=== PATIENT | male | born 1975 | race Caucasian/White ===

== ENCOUNTER 2024-05-22 07:41 | Day surgery (SDC) | payer OTHER ==
[~2024-05-22] VITALS: Ht 185.4 cm; Wt 90.9 kg
[~2024-05-22 07:41] MED LIST: HYDROCHLOROTH12.5 MG PO; IBLOOD GLUCOSE TEST STRIP 1 EA TEST VI PRN; LACTATED RINGER'S 1,000 ML IV SCH; LIDOCAINE HCL 1% 5 ML SDV INJ ONE; MIDAZOLAM HCL 5 MG/5 ML VIAL IV PRN; fentaNYL citrate 100 MCG/2 ML VIAL IV PRN
[2024-05-22 07:54] VITALS: BP 152/80
[2024-05-22] MEDS ORDERED: ROSUVASTATIN CAL5 MG PO (07:57)
[2024-05-22] MEDS ORDERED: DAILY VITAMIN1 EAC3 PO (07:58)
[2024-05-22] MEDS ORDERED: fentaNYL citrate 100 MCG/2 ML VIAL ONE ×2 (08:36→09:00)
[2024-05-22] MEDS ORDERED: MIDAZOLAM HCL 2 MG/2 ML VIAL ONE ×2 (08:36→09:02)
--- NOTE | 2024-05-22 09:40 | NUR ---
05/22/24 0940 Idalia Coyle [id number]-PT ARRIVES TO PACU RESTING ON LT SIDE, PT A+O XA, DENIES PAIN OR NAUSEA, PT'S ABD DISTENDED PT EDUCATED AND ENCOURAGED TO PASS GAS. VSS ON RA, RR EVEN AND UNLABORED.
[2024-05-22 10:43] VITALS: BP 129/72
--- NOTE | 2024-05-23 12:23 | PATH ---
[facility] [address], [place] [address] Signed SPECIMEN(S): A CECUM COLON BIOPSY SPECIMEN(S): B ILEUM BIOPSY SPECIMEN(S): C SIGMOID POLYP SPECIMEN(S): D RECTUM BIOPSY SPECIMEN SOURCE: A. CECUM COLON BIOPSY B. ILEUM BIOPSY C. SIGMOID POLYP D. RECTUM BIOPSY CLINICAL HISTORY: Screening, painful rectal bleed, mild proctitis FINAL PATHOLOGIC DIAGNOSIS: A. Cecum, biopsy: - Colonic mucosa with no significant pathologic changes B. Ileum, biopsy: - Small bowel mucosa with no significant pathologic changes C. Colon, sigmoid, polypectomy: - Hyperplastic polyp D. Rectum, biopsy: - Colonic mucosa with no significant pathologic changes BRP MICROSCOPIC EXAMINATION: Histologic sections of all submitted blocks are examined by light microscopy. These findings, together with the gross examination, support the pathologic diagnosis. GROSS DESCRIPTION: A. The specimen, labeled and designated "Kizzy, cecum colon biopsy," is received in formalin and consists of two oconnell soft tissue fragments, ranging from 0.3-0.7 cm. Entirely submitted in (A1). B. The specimen, labeled and designated "Kizzy, ileum biopsy," is received in formalin and consists of three oconnell soft tissue fragments, ranging from 0.1-0.3 cm. Entirely submitted in (B1). C. The specimen, labeled and designated "Kizzy, sigmoid polyp," is received in formalin and consists of two oconnell soft tissue fragments, ranging from 0.2-0.3 cm. Entirely submitted in (C1). D. The specimen, labeled and designated "Kizzy, rectum biopsy," is received PATIENT NAME: MARV WATKINS PATHOLOGY DATE OF : 75 REPORT #: [id number] PHYSICIAN: YURIDIA PATHOLOGY PCP: DESIREE COMBS MD REPORT IS CONFIDENTIAL AND NOT TO BE RELEASED WITHOUT AUTHORIZATION [facility] [address], [place] [address] Signed in formalin and consists of three oconnell soft tissue fragments, ranging from 0.2-0.3 cm. Entirely submitted in (D1). VB (under the direct supervision of a pathologist) The Gross Description was prepared using a voice recognition system. The report was reviewed for accuracy; however, sound-alike word errors, addition and/or deletions may occur. If there is any question about this report, please contact Client Services. ADDITIONAL NOTES: Immunohistochemical and/or in situ hybridization studies if performed in this case included appropriate positive controls that reacted as expected. This test was developed and its performance characteristics determined by [facility]. It has not been cleared or approved by the U.S. Food and Drug Administration. The FDA has determined that such clearance or approval is not necessary. This test is used for clinical purposes. It should not be regarded as investigational or for research. [facility] is certified under the Clinical Laboratory Improvement Amendments of 1988 (CLIA) as qualified to perform high complexity clinical laboratory testing. PERFORMING LABORATORY: Technical component was performed by [facility], [address] [place] [id number] (CLIA# [id number]). Professional interpretation was performed by [email or web address] [address] [place] [id number] Diagnostician: Kale Goff MD Pathologist Electronically Signed 05/23/2024 Copies: ~ PATIENT NAME: KIZZYMARV BC PATHOLOGY DATE OF : 75 REPORT #: [id number] PHYSICIAN: YURIDIA COOPER PCP: DESIREE COMBS MD REPORT IS CONFIDENTIAL AND NOT TO BE RELEASED WITHOUT AUTHORIZATION
--- NOTE | 2024-05-24 15:30 | OR ---
[facility] [address] [place], [place] [address] Signed DATE OF OPERATION: 05/22/2024 SURGEON: Kristal Gutierrez MD PREOPERATIVE DIAGNOSES: History of chronic recurring anal pain and episodic rectal bleeding. POSTOPERATIVE DIAGNOSES: 1. No evidence of acute or chronic anal fissure. 2. Minimal hyperplastic polypoid change in sigmoid and mild proctitis. PROCEDURES: 1. Total colonoscopy to cecum with intubation of ileum and biopsy of the ileum, cecum and rectum. 2. Cold morcellation polypectomy of hyperplastic polyps of sigmoid. ANESTHESIA: Intravenous sedation; fentanyl 150 mcg, Versed 8 mg. INDICATION: This 49-year-old white man is a patient of Dr. Desiree Combs. A year ago, he had a precipitous solid bowel movement, which caused extreme and severe pain and thereafter episodic rectal bleeding. He was evaluated by his primary provider, Dr. Combs and treated with nitroglycerin ointment for presumed anal fissure. He still has episodes of post-defecatory anal pain and spasm. Clinical examination on my part shows no evidence of acute or chronic fissure at this time. He has no perianal pathology other than mild erythema. He is admitted at this time to undergo colonoscopy to assess other sources of rectal bleeding in addition to a more careful and thorough examination of the anal canal for possible fissure. He understands the risk of bleeding, infection, and perforation related to colonoscopy and wished to proceed. FINDINGS: The prep was excellent. Complete colonoscopy was undertaken of the cecum. Intubation of the ileum was accomplished as well. The ileum generally appeared normal. Biopsies were obtained to assess for inflammatory change. The cecum had mild inflammation and of uncertain significance, but was biopsied also. The remaining colon had no evidence of adenomatous polyps. There were areas of hyperplastic polyps of the sigmoid area. Careful inspection of the anorectum and rectum proper showed mild proctitis though of unlikely clinical significance and probably related to bowel prep. Biopsies were obtained, however. There were internal hemorrhoidal changes. No evidence of fissure on Electronically Signed By: KRISTAL GUTIERREZ MD 05/24/24 1530 PATIENT NAME: MARV WATKINS OPERATIVE REPORT DATE OF : 75 REPORT #: [id number] PHYSICIAN: KRISTAL GUTIERREZ MD PCP: DESIREE COMBS MD REPORT IS CONFIDENTIAL AND NOT TO BE RELEASED WITHOUT AUTHORIZATION [facility] [address] [place], [place] [address] Signed endoscopic or physical examination. DESCRIPTION OF PROCEDURE: The patient was brought to the surgical endoscopy suite and placed in the lateral decubitus position, given intravenous sedation to the point of slurred speech and nystagmus. Anorectal examination showed no sign of fissure, swelling, or other issue at that time. Digital rectal exam showed no prostatic abnormality. An Olympus video colonoscope was passed in the rectum and manipulated throughout the colon ultimately intubating the cecum itself. The ileocecal valve and appendiceal orifice were normal. There was some amount of ileum was intubated as well. The mucosa appeared normal overall. Biopsies were obtained to assess for occult ileitis. The scope was withdrawn and biopsies then taken of the cecum, which did have some mild inflammation. Careful withdrawal of scope showed no sign of abnormality until the sigmoid where two areas of hyperplastic change were noted. Neuro band imaging confirmed this likely to be hyperplasia rather than adenomatous change. The scope was further withdrawn and the rectum examined showing mild inflammation but of unlikely clinical significance. Retroflexed view confirmed this. Internal hemorrhoidal changes were noted, but they were not significant and certainly there was no sign of bleeding careful. The scope was carefully withdrawn from the anal canal showing no sign of fissure, only some hemorrhoidal change as previously noted in the more proximal area. The scope was fully removed and physical examination undertaken with the endoscopic used for elimination with the retail loan originator assistant of providing lighting and exposure. Careful examination showed no evidence of acute or chronic fissure or other abnormality. There was no dermatitis. The patient was taken to the recovery room in good condition having suffered no complication. CONCLUDING DIAGNOSIS: No evidence of acute or chronic fissure at this time. He does appear to have post-defecatory anal spasm which is episodic. His rectal bleeding may be related to hemorrhoidal disease. PLAN: I would like to see him back in the office in 4 to 6 weeks and review his progress. He will maintain his high-fiber diet. He has used nitroglycerin ointment for anal spasm pain and should continue to do so as needed. He does not have strong indication for lateral and internal sphincterotomy at this time. Kristal Gutierrez MD Electronically Signed By: KRISTAL GUTIERREZ MD 05/24/24 1530 PATIENT NAME: MARV WATKINS OPERATIVE REPORT DATE OF : 75 REPORT #: [id number] PHYSICIAN: KRISTAL GUTIERREZ MD PCP: DESIREE COMBS MD REPORT IS CONFIDENTIAL AND NOT TO BE RELEASED WITHOUT AUTHORIZATION [facility] [address] [place], [place] [address], [place] [address] Signed /[facility] /[id number] cc: Desiree Combs MD Copies: DESIREE COMBS DMD ~ Electronically Signed By: KRISTAL GUTIERREZ MD 05/24/24 1530 PATIENT NAME: MARV WATKINS OPERATIVE REPORT DATE OF : 75 REPORT #: [id number] PHYSICIAN: KRISTAL GUTIERREZ MD PCP: DESIREE COMBS MD REPORT IS CONFIDENTIAL AND NOT TO BE RELEASED WITHOUT AUTHORIZATION
== END 2024-05-22 10:40 | disposition home or self-care (01) ==
LOC: OPS 07:41 → DS 07:42 → OPS 08:00 → DSVR 10:30 → OPS 10:40 → DS 14:45 → OPS 14:45
PROVIDERS: ATTEND Surgery
PROC: 0DBN8ZZ Excision of Sigmoid Colon, Via Natural or Artificial Opening Endoscopic (ICD-10-PCS; 2024-05-22)
PROC: 0DBP8ZZ Excision of Rectum, Via Natural or Artificial Opening Endoscopic (ICD-10-PCS; 2024-05-22)
PROC: 0DBC8ZZ Excision of Ileocecal Valve, Via Natural or Artificial Opening Endoscopic (ICD-10-PCS; 2024-05-22)
PROC: 0DBH8ZZ Excision of Cecum, Via Natural or Artificial Opening Endoscopic (ICD-10-PCS; principal; 2024-05-22 08:30)
DX: K63.5 Polyp of colon (principal); K62.89 Other specified diseases of anus and rectum; K64.8 Other hemorrhoids; I10 Essential (primary) hypertension; F31.9 Bipolar disorder, unspecified; Z79.899 Other long term (current) drug therapy; Z98.890 Other specified postprocedural states
CPT/HCPCS: 99153; G0500; J2250; J3010; J7121